=== PATIENT | male | born 1995 | race African-American/Black ===

== ENCOUNTER 2022-08-13 09:54 | Emergency (ER) | payer SELFPAY ==
[~2022-08-13] VITALS: Ht 170.2 cm; Wt 68.0 kg
[2022-08-13 09:59] VITALS: BP_SYST 112
--- NOTE | 2022-08-13 10:00 | NUR ---
Placed in room 05 . Placed on satellite project site monitor, blood pressure machine and pulse oximeter. To gown for exam. Side rails up. Report given to AILYN BAE.
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
--- NOTE | 2022-08-13 10:06 | NUR ---
DR. JOHNSON AT BEDSIDE EXAMINING THE PT.
[2022-08-13 10:40] LABS: BASOPHILS % (AUTO) 0.6 % (0.0-2.0); EOSINOPHILS # (AUTO) 1.9 K/uL (0.0-0.4); EOSINOPHILS % (AUTO) 31.8 % (0.0-4.0); HEMATOCRIT 39.4 % (36-54); HEMOGLOBIN 13.1 g/dL (14.0-18.0); LYMPHOCYTES # (AUTO) 1.4 K/uL (1.0-5.5); LYMPHOCYTES % (AUTO) 22.6 % (20.5-51.5); MEAN CORPUSCULAR HEMOGLOBIN 31 pg (27-31); MEAN CORPUSCULAR HGB CONC 33 % (32-36); MEAN CORPUSCULAR VOLUME 93 fL (79.0-98.0); MONOCYTES # (AUTO) 0.3 K/uL (0.0-1.0); MONOCYTES % (AUTO) 4.9 % (1.7-9.3); NEUTROPHILS # (AUTO) 2.4 K/uL (1.8-7.7); PLATELET COUNT (AUTO) 293 K/uL (130-430); RED BLOOD CELL COUNT(AUTO) 4.23 MIL/uL (4.2-6.2); RED CELL DISTRIBUTION WIDTH 13.6 % (9.0-15.0); WHITE BLOOD COUNT (AUTO) 6.1 K/uL (4.8-10.8)
[2022-08-13 11:03] LABS: ALANINE AMINOTRANSFERASE 26 U/L (12-78); ALBUMIN 3.2 g/dL (3.4-4.8); ANION GAP 10 (5-15); ASPARTATE AMINOTRANSFERASE 29 U/L (10-37); CALCIUM 8.8 mg/dL (8.4-11.0); CHLORIDE 103 mmol/L (98-107); CREATININE 0.91 mg/dL (0.55-1.30); GFR AFRICAN AMERICAN 128 mL/min (>90); GLUCOSE 123 mg/dL (70-99); TOTAL BILIRUBIN 0.5 mg/dL (0.0-1.0); UREA NITROGEN, BLOOD 17 mg/dL (8-21)
[2022-08-13 11:04] LABS: NEUTROPHILS % (AUTO) 40.1 % (40.0-70.0)
[2022-08-13 11:40] LABS: CKMB RELATIVE INDEX 1.5 (0.0-2.9); CREATINE KINASE MB 6.7 ng/mL (0-3.6)
[2022-08-13 11:48] LABS: ACETONE, SERUM NEGATIVE (NEGATIVE)
[2022-08-13 12:29] VITALS: BP_SYST 122
--- NOTE | 2022-08-13 12:29 | NUR ---
PT MEDICALLY CLEARED FOR DISCHARGE. D/C INSTRUCTIONS GIVEN TO PT. PT TO FOLLOW-UP WITH PCP WITHIN 1-3 DAYS AND TO RETURN TO ED FOR WORSENING S/S. PT VERBALZIED UNDERSTANDING. PT AAX04, NAD, WRISTBAND REMOVED. PT AMBULATORY WITH STEADY GAIT. PT LEFT ED WITH ALL BELONGINGS.
[2022-08-14] MEDS ORDERED: ONDA-8 TL (11:57)
== END 2022-08-13 12:29 | disposition home or self-care (01) ==
LOC: SED 09:54
DX: R07.9 Chest pain, unspecified (principal); R51.9 Headache, unspecified; F14.10 Cocaine abuse, uncomplicated; Z79.899 Other long term (current) drug therapy
CPT/HCPCS: 36415; 80053; 82009; 82550; 82553; 84484; 85025; 99283

== ENCOUNTER 2022-08-14 10:28 | Emergency (ER) | payer SELFPAY ==
[~2022-08-14] VITALS: Ht 175.3 cm; Wt 68.0 kg
[2022-08-14 10:33] VITALS: BP_SYST 116
--- NOTE | 2022-08-14 10:40 | NUR ---
Placed in room 07 . Placed on monitor car operator, blood pressure machine and pulse oximeter. To gown for exam. Side rails up. Report given to CHOLO BUTLER.
--- NOTE | 2022-08-14 10:41 | NUR ---
Patient BIB by ambulance from. Chief Complaint: N/V & ETOH Patient placed on monitor, a&ox2 and stable.
[2022-08-14] MEDS ORDERED: ONDANSETRON 4 MG ODT TAB PO ONE (11:00)
[2022-08-14 11:22] LABS: BASOPHILS % (AUTO) 0.4 % (0.0-2.0); EOSINOPHILS # (AUTO) 1.1 K/uL (0.0-0.4); EOSINOPHILS % (AUTO) 15.2 % (0.0-4.0); HEMATOCRIT 44.1 % (36-54); HEMOGLOBIN 14.5 g/dL (14.0-18.0); LYMPHOCYTES # (AUTO) 1.7 K/uL (1.0-5.5); LYMPHOCYTES % (AUTO) 21.9 % (20.5-51.5); MEAN CORPUSCULAR HEMOGLOBIN 31 pg (27-31); MEAN CORPUSCULAR HGB CONC 33 % (32-36); MEAN CORPUSCULAR VOLUME 94 fL (79.0-98.0); MONOCYTES # (AUTO) 0.4 K/uL (0.0-1.0); MONOCYTES % (AUTO) 5.6 % (1.7-9.3); NEUTROPHILS # (AUTO) 4.3 K/uL (1.8-7.7); NEUTROPHILS % (AUTO) 56.9 % (40.0-70.0); PLATELET COUNT (AUTO) 332 K/uL (130-430); RED CELL DISTRIBUTION WIDTH 13.7 % (9.0-15.0); WHITE BLOOD COUNT (AUTO) 7.5 K/uL (4.8-10.8)
--- NOTE | 2022-08-14 11:27 | NUR ---
ER at bedside examining patient.
[2022-08-14 11:41] LABS: ANION GAP 8 (5-15); CALCIUM 8.1 mg/dL (8.4-11.0); CHLORIDE 104 mmol/L (98-107); CREATININE 0.66 mg/dL (0.55-1.30); GFR AFRICAN AMERICAN 185 mL/min (>90); GLUCOSE 93 mg/dL (70-99); UREA NITROGEN, BLOOD 5 mg/dL (8-21)
[2022-08-14 11:45] LABS: ACETAMINOPHEN < 1 ug/mL (1-30); ALANINE AMINOTRANSFERASE 27 U/L (12-78); ALBUMIN 3.4 g/dL (3.4-4.8); ALCOHOL, BLOOD 26 mg/dL (<10); ASPARTATE AMINOTRANSFERASE 25 U/L (10-37); TOTAL BILIRUBIN 0.2 mg/dL (0.0-1.0)
--- NOTE | 2022-08-14 11:46 | NUR ---
Patient given Zofran ODT 4mg. Patient denies allergies. Patient verified name and prior to administration, and agreed to medication administration.
[2022-08-14] MEDS ORDERED: ONDA-8 TL (11:57)
--- NOTE | 2022-08-14 12:15 | NUR ---
Patient given written and verbal discharge instructions and verbalizes understanding. ER MD Salinas discussed with patient the results and treatment provided. Patient in stable condition. ID arm band removed. Opportunity for questions provided and answered. Medication side effect fact sheet provided.
== END 2022-08-14 12:15 | disposition home or self-care (01) ==
LOC: SED 10:28
DX: F10.129 Alcohol abuse with intoxication, unspecified (principal); R11.2 Nausea with vomiting, unspecified; Z79.899 Other long term (current) drug therapy; Y90.6 Blood alcohol level of 120-199 mg/100 ml
CPT/HCPCS: 99283; 80053; 85025; 36415; G0482; Q0162; G0480; G0481

== ENCOUNTER 2024-01-10 15:38 | Emergency (ER) | payer SELFPAY ==
[~2024-01-10] VITALS: Ht 167.6 cm; Wt 67.6 kg
[~2024-01-10 15:38] MED LIST: ONDA-8 TL
[2024-01-10 15:45] VITALS: BP_SYST 129; PULSE 91; RESP 18; TEMP 98.3; O2SAT 99
[2024-01-10] MEDS ORDERED: ACETAMINOPHEN 325 MG TABLET PO ONE (17:00)
[2024-01-10 18:30] VITALS: BP_SYST 126; PULSE 72; RESP 16; TEMP 98.3; O2SAT 100
== END 2024-01-10 18:30 ==
LOC: SED 15:38
DX: M79.671 Pain in right foot (principal); M54.50 Low back pain, unspecified; R10.9 Unspecified abdominal pain; F17.200 Nicotine dependence, unspecified, uncomplicated; F15.90 Other stimulant use, unspecified, uncomplicated; Z79.899 Other long term (current) drug therapy
CPT/HCPCS: 72100; 99284